=== PATIENT | female | born 1935 | race Two or more races ===

== ENCOUNTER 2018-06-12 17:00 | Inpatient (IN) | payer MEDICARE, MEDICAID ==
[~2018-06-12] VITALS: Ht 304.8 cm; Wt 63.0 kg
--- NOTE | 2018-06-12 17:15 | NUR ---
PT IS IN BED #2B. DR ALLISON EVALUATED THE PT.
[2018-06-12] MEDS ORDERED: PLAVIX (17:27)
[2018-06-12] MEDS ORDERED: CITA10TA17 PO (17:27)
[2018-06-12] MEDS ORDERED: CHOLESTEROL MEDS (17:27)
[2018-06-12] MEDS ORDERED: LEVO75TA PO (17:27)
[2018-06-12] MEDS ORDERED: IV NORMAL SALINE 1000 ML BAG IV ONE (17:30)
[2018-06-12] MEDS ORDERED: NOREPINEPHRINE BITARTRATE 8 MG in IV DEXTROSE 5% 500 ML IV PRN (17:45)
[2018-06-12] MEDS ORDERED: DILTIAZEM HCL IV 125 MG in IV DEXTROSE 5% 100 ML IV PRN (17:45)
[2018-06-12] MEDS ORDERED: DILTIAZEM HCL 25 MG IV IV ONE (18:00)
[2018-06-12 18:02] LABS: BASOPHILS % (AUTO) 0.1 % (0.0-2.0); EOSINOPHILS % (AUTO) 0.4 % (0.0-7.0); HEMATOCRIT 40.3 % (31.2-41.9); HEMOGLOBIN 13.7 g/dL (10.9-14.3); LYMPHOCYTES # (AUTO) 1.6 K/uL (20.0-40.0); LYMPHOCYTES % (AUTO) 22.1 % (20.5-51.5); MEAN CORPUSCULAR HEMOGLOBIN 32.9 uug (24.7-32.8); MEAN CORPUSCULAR HGB CONC 34 g/dL (32.3-35.6); MEAN CORPUSCULAR VOLUME 96.9 fL (75.5-95.3); MONOCYTES # (AUTO) 0.6 K/uL (2.0-10.0); MONOCYTES % (AUTO) 7.7 % (0.0-11.0); NEUTROPHILS # (AUTO) 5.1 K/uL (1.8-8.9); NEUTROPHILS % (AUTO) 69.7 % (38.5-71.5); PLATELET COUNT (AUTO) 269 K/uL (179-408); RED BLOOD CELL COUNT(AUTO) 4.16 MIL/uL (3.63-4.92); WHITE BLOOD COUNT (AUTO) 7.3 K/uL (3.8-11.8)
[2018-06-12] MEDS ORDERED: DILTIAZEM HCL 25 MG IV ONE (18:02)
[2018-06-12 18:17] LABS: ALANINE AMINOTRANSFERASE 28 U/L (14-59); ALKALINE PHOSPHATASE 54 U/L (50-136); ASPARTATE AMINOTRANSFERASE 13 U/L (15-37); BILIRUBIN,DIRECT 0.1 mg/dL (0.0-0.2); BILIRUBIN,TOTAL 0.3 mg/dL (0.2-1.0); CARBON DIOXIDE 27 mmol/L (21-32); CHLORIDE 104 mmol/L (98-107); CREATININE 0.7 mg/dL (0.6-1.3); GLUCOSE 139 mg/dL (74-106); TOTAL PROTEIN, SERUM 5.9 g/dL (6.4-8.2); UREA NITROGEN, BLOOD 15 mg/dL (7-18)
--- NOTE | 2018-06-12 18:18 | NUR ---
DR ALLISON GAVE ORDER TO HOLD CARDIZEM AND LEVOPHED DRIPS. PT'S HR = 86 , B/P =116/63.
[2018-06-12 18:23] LABS: POTASSIUM 2.7 mmol/L (3.5-5.1)
[2018-06-12] MEDS ORDERED: POTASSIUM BICARBONATE/CIT AC 25 MEQ TABLET.EFF PO ONE (18:30)
[2018-06-12] MEDS ORDERED: POTASSIUM BICARBONATE/CIT AC 25 MEQ TABLET.EFF ONE (18:43)
[2018-06-12] MEDS ORDERED: POTASSIUM CHLORIDE 50 ML ONE ×2 (18:45→20:10)
[2018-06-12 18:46] LABS: *BILIRUBIN,URIN NEGATIVE (NEGATIVE); *BLOOD, URINE Trace-intact (NEGATIVE); *CLARITY,URINE CLEAR (CLEAR); *COLOR,URINE YELLOW (YELLOW); *KETONES,URINE NEGATIVE (NEGATIVE); *PROTEIN,URINE NEGATIVE (NEGATIVE); *UROBILINOGEN,URINE 0.2 E.U./dl (NORMAL); LEUKOCYTE ESTERASE ,URINE NEGATIVE (NEGATIVE); NITRITE, URINE NEGATIVE (NEGATIVE); UGLUCOSE NEGATIVE (NEGATIVE)
[2018-06-12 18:50] LABS: RBC,URINE 0-3 /HPF (0-3); SQUAMOUS EPITHELIAL CELL,UR FEW /HPF (NONE SEEN); WBC,URINE NONE SEEN /HPF (0-3)
[2018-06-12] MEDS: POTASSIUM CHLORIDE 50 ML IV SCH ×2 (19:20→20:12)
--- NOTE | 2018-06-12 20:26 | NUR ---
Report given to Astrid HATFIELD MARIANO.
[2018-06-12] MEDS ORDERED: ACETAMINOPHEN 325 MG TABLET PO PRN (21:00)
[2018-06-12] MEDS ORDERED: DOCUSATE SODIUM 100 MG CAPSULE PO SCH (21:00)
[2018-06-12] MEDS ORDERED: TEMAZEPAM 7.5 MG CAPSULE PO PRN (21:00)
[2018-06-12] MEDS ORDERED: ONDANSETRON 4 MG/2 ML VIAL IV PRN (21:00)
[2018-06-12] MEDS ORDERED: HYDROCODONE/APAP 5-325MG TABLET PO PRN (21:00)
[2018-06-12 21:27] VITALS: BP 115/64
[2018-06-13 00:27] VITALS: BP 124/57
[2018-06-13 04:37] VITALS: BP 140/63
[2018-06-13] MEDS: DILTIAZEM HCL 30 MG TABLET PO SCH ×2 (05:51→12:49)
[2018-06-13 06:47] LABS: BASOPHILS % (AUTO) 0.2 % (0.0-2.0); EOSINOPHILS % (AUTO) 0.4 % (0.0-7.0); HEMATOCRIT 37.7 % (31.2-41.9); HEMOGLOBIN 12.8 g/dL (10.9-14.3); LYMPHOCYTES # (AUTO) 1.4 K/uL (20.0-40.0); LYMPHOCYTES % (AUTO) 21.7 % (20.5-51.5); MEAN CORPUSCULAR HEMOGLOBIN 33.2 uug (24.7-32.8); MEAN CORPUSCULAR HGB CONC 34 g/dL (32.3-35.6); MEAN CORPUSCULAR VOLUME 97.9 fL (75.5-95.3); MONOCYTES # (AUTO) 0.6 K/uL (2.0-10.0); MONOCYTES % (AUTO) 8.7 % (0.0-11.0); NEUTROPHILS # (AUTO) 4.4 K/uL (1.8-8.9); PLATELET COUNT (AUTO) 255 K/uL (179-408); RED BLOOD CELL COUNT(AUTO) 3.85 MIL/uL (3.63-4.92); WHITE BLOOD COUNT (AUTO) 6.4 K/uL (3.8-11.8)
[2018-06-13] MEDS ORDERED: PANTOPRAZOLE SODIUM 40 MG TABLET.DR PO SCH (07:00)
[2018-06-13 07:08] LABS: ALANINE AMINOTRANSFERASE 24 U/L (14-59); ALKALINE PHOSPHATASE 50 U/L (50-136); ASPARTATE AMINOTRANSFERASE 15 U/L (15-37); BILIRUBIN,TOTAL 0.5 mg/dL (0.2-1.0); CARBON DIOXIDE 32 mmol/L (21-32); CHLORIDE 106 mmol/L (98-107); CHOLESTEROL 196 mg/dL (<200); CREATININE 0.6 mg/dL (0.6-1.3); GLUCOSE 93 mg/dL (74-106); HDL CHOLESTEROL 83 mg/dL (40-60); MAGNESIUM 1.6 mg/dL (1.8-2.4); POTASSIUM 3.5 mmol/L (3.5-5.1); TOTAL PROTEIN, SERUM 5.6 g/dL (6.4-8.2); TRIGLYCERIDES 95 MG/DL (30-150); UREA NITROGEN, BLOOD 9 mg/dL (7-18)
--- NOTE | 2018-06-13 07:45 | NUR ---
RECEIVED AN 82 Y/O FEMALE PT A CASE OF SYNCOPE, AF WITH RVR, PT AA, OX3, CONNECTED TO TELE MONITOR SHOWING SR. PT CAN WALK WITH ONE PERSON ASSISTANCE, HAS 2 PERIPHERAL LINE G2O BOTH INTACT AND PATENT. URINATING FREELY.
[2018-06-13] MEDS ORDERED: CITALOPRAM 10 MG TABLET PO SCH (09:00)
[2018-06-13] MEDS ORDERED: CLOPIDOGREL 75 MG TABLET PO SCH (09:00)
[2018-06-13] MEDS ORDERED: LEVOTHYROXINE SODIUM 75 MCG TABLET PO SCH (09:00)
[2018-06-13] MEDS ORDERED: POTASSIUM CHLORIDE 20 MEQ TAB.PRT.SR PO ONE (09:30)
[2018-06-13] MEDS ORDERED: MAGNESIUM OXIDE 400 MG TABLET PO ONE (09:30)
--- NOTE | 2018-06-13 09:30 | NUR ---
PT TAKEN TO RADIOLOGY UNIT FOR CHEST CT SCAN W/O CONTRAST
[2018-06-13 11:25] VITALS: BP 116/60
[2018-06-13 15:13] VITALS: BP 110/60
--- NOTE | 2018-06-13 16:29 | NUR ---
Patient was being seen for BMI of 6.8. Spoke to nurse, pt's height was off, the height is 60in and weight is 139# that puts her BMI at 27. Addendum: 06/13/18 at [address] Amended: Links added.
--- NOTE | 2018-06-13 17:15 | NUR ---
SEEN BY DR ROLON ASSESSED THE PT , UPDATES GIVEN, GAVE THE OKAY FOR PATIENT TO GO HOME.
--- NOTE | 2018-06-13 17:58 | NUR ---
SEEN BY DR OROZCO AND ORDERED FOR PATIENTS DISCHARGE TO HOME, ORDER CARRIED OUT AND DONE.
[2018-06-13] MEDS ORDERED: LEVO50TA PO (18:01)
--- NOTE | 2018-06-13 18:50 | NUR ---
PT DISCHARGED TO HOME WITH DAUGHTER SENT DOWN VIA WHEELCHAIR , RECEIVED ALL HER BELONGINGS, DISCHARGE INSTRUCTIONS AND PRESCRIPTIONS.
== END 2018-06-13 18:45 | disposition home health service (06) | DRG 309 ==
LOC: ER 17:05 → TELE 20:14 → EDBD 20:14 → TELE-TD 21:11 → TELE 23:02
PROVIDERS: ADMIT Internal Medicine; ATTEND Internal Medicine
DX: I48.0 Paroxysmal atrial fibrillation (principal); J90 Pleural effusion, not elsewhere classified; S00.03XA Contusion of scalp, initial encounter; W18.39XA Other fall on same level, initial encounter; Y93.89 Activity, other specified; Y92.019 Unspecified place in single-family (private) house as the place of occurrence of the external cause; Z90.13 Acquired absence of bilateral breasts and nipples; E89.0 Postprocedural hypothyroidism; E87.6 Hypokalemia; E78.5 Hyperlipidemia, unspecified; M50.321 Other cervical disc degeneration at C4-C5 level; E78.00 Pure hypercholesterolemia, unspecified; G31.84 Mild cognitive impairment of uncertain or unknown etiology; I11.9 Hypertensive heart disease without heart failure; I25.10 Atherosclerotic heart disease of native coronary artery without angina pectoris; R91.1 Solitary pulmonary nodule; R93.2 Abnormal findings on diagnostic imaging of liver and biliary tract; Z79.02 Long term (current) use of antithrombotics/antiplatelets; R29.6 Repeated falls; Z86.73 Personal history of transient ischemic attack (TIA), and cerebral infarction without residual deficits; Z85.3 Personal history of malignant neoplasm of breast; Z85.850 Personal history of malignant neoplasm of thyroid; R55 Syncope and collapse
CPT/HCPCS: 36415; 70030-TC; 70450; 71045; 71250; 72125; 83605; 83735; 84100; 84443; 85025; 85730; 86850; 86900; 86901; 87040; 93005; 93307; 93880; A4663; J3480; J3490; J7040; J7060